=== PATIENT | female | born 1945 | race Caucasian/White ===

== ENCOUNTER 2016-10-19 19:26 | Inpatient (IN) | payer MEDICARE, OTHER ==
[~2016-10-19] VITALS: Ht 165.1 cm; Wt 89.0 kg
[~2016-10-19 19:26] MED LIST: FOLI-17 PO; LEVE500T53 PO; MULT-750 PO; PANT20TA2 PO; PARO20TA4 PO; THIA100T6 PO
[2016-10-19] MEDS ORDERED: ASPIRIN 81 MG TABLET CHEW ONE (19:55)
[2016-10-19] MEDS ORDERED: SODIUM CHLORIDE FLUSH 10ML SYR IVF ONE ×2 (20:00→20:30)
[2016-10-19] MEDS ORDERED: ASPIRIN 81 MG TABLET CHEW PO ONE (20:00)
[2016-10-19 20:39] LABS: ASPARTATE AMINO TRANSFERASE 127 U/L (15-37); BLOOD UREA NITROGEN 5 mg/dL (7-18)
[2016-10-19 20:42] LABS: IS PT STATUS REG ER OR PRE ER? YES
[2016-10-19] MEDS ORDERED: OMNIPAQUE 350 MG/ML, 100ML BOTTLE ONE (21:06)
[2016-10-19] MEDS ORDERED: SODIUM CHLORIDE 0.9%, 500ML IVBOLUS ONE (21:30)
[2016-10-19] MEDS ORDERED: MECL-76 PO (22:59)
[2016-10-19] MEDS ORDERED: ENALAPRILAT 1.25 MG/ML, 2ML IVPush PRN (23:30)
[2016-10-19] MEDS ORDERED: TEMAZEPAM 15 MG CAPSULE PO PRN (23:30)
[2016-10-19] MEDS ORDERED: LABETALOL 5MG/ML, 20ML IVPush PRN (23:30)
[2016-10-19] MEDS ORDERED: LORazepam 1MG TABLET PO PRN (23:30)
[2016-10-19] MEDS ORDERED: ONDANSETRON 2MG/ML, 2ML IVPush PRN (23:30)
[2016-10-20 00:01] VITALS: BP 128/74
[2016-10-20 02:14] LABS: IS PT STATUS REG ER OR PRE ER? NO
[2016-10-20] MEDS: POTASSIUM CHLORIDE 20 MEQ, MAGNESIUM SULFATE 2 GM, THIAMINE 100 MG, MVI ADULT 10 ML, FO... IV SCH (02:21)
[2016-10-20 06:44] VITALS: BP 128/79
[2016-10-20] MEDS ORDERED: REGADENOSON 0.4 MG/5 ML SYRINGE ONE (08:05)
[2016-10-20 08:23] LABS: IS PT STATUS REG ER OR PRE ER? NO
[2016-10-20 08:27] LABS: ASPARTATE AMINO TRANSFERASE 110 U/L (15-37); BLOOD UREA NITROGEN 4 mg/dL (7-18)
[2016-10-20] MEDS: metroNIDAZOLE 500 MG TABLET PO SCH ×3 (10:07→20:36)
[2016-10-20] MEDS: FAMOTIDINE 20 MG TABLET PO SCH ×2 (10:07→20:35)
[2016-10-20] MEDS: LORazepam 2 MG/ML, 1ML IVPush PRN ×2 (11:03→20:36)
[2016-10-20] MEDS ORDERED: POTASSIUM CHLORIDE 20 MEQ TAB.ER.PRT PO ONE (11:30)
[2016-10-20 14:09] LABS: HEPATITIS C VIRUS ANTIBODY Nonreactive (Nonreactive)
[2016-10-20 14:47] VITALS: BP 114/70
[2016-10-20 18:46] VITALS: BP 118/57
[2016-10-21] MEDS: POTASSIUM CHLORIDE 20 MEQ, MAGNESIUM SULFATE 2 GM, THIAMINE 100 MG, MVI ADULT 10 ML, FO... IV SCH (01:31)
[2016-10-21 01:33] VITALS: BP 108/67
[2016-10-21 06:20] LABS: ASPARTATE AMINO TRANSFERASE 115 U/L (15-37); BLOOD UREA NITROGEN 6 mg/dL (7-18)
[2016-10-21 07:26] VITALS: BP 108/71
[2016-10-21] MEDS ORDERED: REGADENOSON 0.4 MG/5 ML SYRINGE ONE (11:18)
[2016-10-21] MEDS: FAMOTIDINE 20 MG TABLET PO SCH (12:59)
[2016-10-21] MEDS: metroNIDAZOLE 500 MG TABLET PO SCH ×2 (12:59→17:30)
[2016-10-21 13:03] VITALS: BP 143/81
[2016-10-21] MEDS ORDERED: METR500T PO (15:00)
== END 2016-10-21 18:27 | disposition home or self-care (01) | DRG 368 ==
LOC: ED 20:17 → EDIP 22:41 → 5SO 10-20 00:06 → 4EST 10-20 11:41
PROVIDERS: ADMIT Internal Medicine; ATTEND Internal Medicine
DX: I85.00 Esophageal varices without bleeding (principal); N17.0 Acute kidney failure with tubular necrosis; A04.7 Enterocolitis due to Clostridium difficile; J98.11 Atelectasis; K76.6 Portal hypertension; F10.230 Alcohol dependence with withdrawal, uncomplicated; E87.6 Hypokalemia; J32.9 Chronic sinusitis, unspecified; K70.9 Alcoholic liver disease, unspecified; K76.0 Fatty (change of) liver, not elsewhere classified; R16.1 Splenomegaly, not elsewhere classified; Y90.9 Presence of alcohol in blood, level not specified; K80.20 Calculus of gallbladder without cholecystitis without obstruction; Z79.82 Long term (current) use of aspirin; K70.40 Alcoholic hepatic failure without coma
CPT/HCPCS: 36415; 70450; 71010; 71275; 74177; 78452; 80048; 80053; 80074; 80076; 80307; 82040; 83735; 84100; 84484; 85025; 85379; 85610; 85730; 87324; 87493; 93005; 93017; 96360; J2785; J3411; J3475; J3480; J7042; Q9967; A9502; C9898; J2060; J7040

== ENCOUNTER 2016-11-26 13:13 | Inpatient (IN) | payer MEDICARE ==
[~2016-11-26] VITALS: Ht 165.1 cm; Wt 90.7 kg
[~2016-11-26 13:13] MED LIST changes: +MECL-76 PO; +METR500T PO
[2016-11-26] MEDS ORDERED: MECLIZINE CHEWABLE 25 MG TAB PO ONE (13:30)
[2016-11-26] MEDS ORDERED: SODIUM CHLORIDE FLUSH 10ML SYR IVF ONE ×2 (13:30→17:30)
[2016-11-26] MEDS ORDERED: SODIUM CHLORIDE 0.9% 1,000ML IVBOLUS ONE (13:30)
[2016-11-26 13:55] LABS: HEMATOCRIT 28.4 % (34.6-47.8); HEMOGLOBIN 9.5 g/dL (11.7-16.4); WHITE BLOOD COUNT 4.5 x10^3/uL (3.4-10)
[2016-11-26] MEDS ORDERED: MECLIZINE CHEWABLE 25 MG TAB ONE (13:59)
[2016-11-26 14:07] LABS: ASPARTATE AMINO TRANSFERASE 141 U/L (15-37); BLOOD UREA NITROGEN 6 mg/dL (7-18)
[2016-11-26] MEDS ORDERED: LORazepam 2 MG/ML, 1ML IV PRN ×4 (16:30)
[2016-11-26] MEDS ORDERED: ONDANSETRON ODT 4 MG PO PRN (16:30)
[2016-11-26] MEDS ORDERED: MECLIZINE CHEWABLE 25 MG TAB PO PRN (16:30)
[2016-11-26] MEDS ORDERED: ONDANSETRON 2MG/ML, 2ML IVPush PRN (16:30)
[2016-11-26] MEDS ORDERED: LORazepam 0.5MG TABLET PO PRN (16:30)
[2016-11-26] MEDS ORDERED: OXYcodone IR 5MG TABLET PO PRN (16:30)
[2016-11-26] MEDS ORDERED: LORazepam 1MG TABLET PO PRN ×2 (16:30)
[2016-11-26] MEDS ORDERED: OXYcodone IR 5MG TABLET ONE (16:35)
[2016-11-26] MEDS ORDERED: LORazepam 2 MG/ML, 1ML ONE (16:36)
[2016-11-26 18:03] VITALS: BP 90/54
[2016-11-26 18:14] VITALS: BP 90/54
[2016-11-26] MEDS: POTASSIUM CHLORIDE 20 MEQ, MAGNESIUM SULFATE 1 GM, THIAMINE 100 MG, FOLIC ACID 1 MG, MV... IV SCH (20:38)
[2016-11-26] MEDS: PANTOPRAZOLE 40 MG IV IVPush SCH (20:38)
[2016-11-26] MEDS: LORazepam 1MG TABLET PO PRN ×2 (20:39→23:20)
[2016-11-26 20:57] VITALS: BP 128/51
[2016-11-26 22:30] LABS: HEMATOCRIT 25.8 % (34.6-47.8); HEMOGLOBIN 8.6 g/dL (11.7-16.4)
[2016-11-27] MEDS ORDERED: CHLORDIAZEPOXIDE 10 MG CAPSULE PO ONE (02:30)
[2016-11-27 02:45] VITALS: BP 100/50
[2016-11-27 06:12] LABS: HEMATOCRIT 25.5 % (34.6-47.8); HEMOGLOBIN 8.7 g/dL (11.7-16.4); WHITE BLOOD COUNT 3.5 x10^3/uL (3.4-10)
[2016-11-27 06:14] LABS: BLOOD UREA NITROGEN 7 mg/dL (7-18)
[2016-11-27 06:25] LABS: ASPARTATE AMINO TRANSFERASE 120 U/L (15-37)
[2016-11-27 07:04] VITALS: BP 95/57
[2016-11-27] MEDS ORDERED: CHLORDIAZEPOXIDE 10 MG CAPSULE PO SCH (09:00)
[2016-11-27] MEDS: PANTOPRAZOLE 40 MG IV IVPush SCH ×2 (10:32→21:35)
[2016-11-27] MEDS: PHYTONADIONE 10 MG/ML, 1ML SQ SCH (10:33)
[2016-11-27 12:53] VITALS: BP 99/62
[2016-11-27] MEDS ORDERED: SODIUM CHLORIDE 0.9% 1,000 ML IV SCH (15:00)
[2016-11-27 20:03] VITALS: BP 102/50
[2016-11-27] MEDS: POTASSIUM CHLORIDE 20 MEQ, MAGNESIUM SULFATE 1 GM, THIAMINE 100 MG, FOLIC ACID 1 MG, MV... IV SCH (21:55)
[2016-11-28 02:34] VITALS: BP 109/61
[2016-11-28 05:38] LABS: HEMATOCRIT 25.8 % (34.6-47.8); HEMOGLOBIN 8.6 g/dL (11.7-16.4); WHITE BLOOD COUNT 3.4 x10^3/uL (3.4-10)
[2016-11-28 05:43] LABS: ASPARTATE AMINO TRANSFERASE 115 U/L (15-37); BLOOD UREA NITROGEN 5 mg/dL (7-18)
[2016-11-28 07:20] VITALS: BP 81/43
[2016-11-28] MEDS: PANTOPRAZOLE 40 MG IV IVPush SCH ×2 (08:58→22:01)
[2016-11-28] MEDS: PHYTONADIONE 10 MG/ML, 1ML SQ SCH (08:59)
[2016-11-28] MEDS ORDERED: CHLORDIAZEPOXIDE 10 MG CAPSULE PO SCH (09:00)
[2016-11-28] MEDS ORDERED: GADOBUTROL 7.5 MMOL/7.5 ML PFS ONE (11:03)
[2016-11-28 13:01] VITALS: BP 92/56
[2016-11-28] MEDS: SODIUM CHLORIDE 0.9% 1,000 ML IV SCH (18:51)
[2016-11-28 19:56] VITALS: BP 99/56
[2016-11-28] MEDS: POTASSIUM CHLORIDE 20 MEQ, MAGNESIUM SULFATE 1 GM, THIAMINE 100 MG, FOLIC ACID 1 MG, MV... IV SCH (22:00)
[2016-11-28] MEDS: RIFAXIMIN 550 MG TABLET PO SCH (22:01)
[2016-11-29 01:58] VITALS: BP 99/58
[2016-11-29] MEDS: SODIUM CHLORIDE 0.9% 1,000 ML IV SCH ×3 (02:00→17:12)
[2016-11-29 05:45] LABS: HEMATOCRIT 28.3 % (34.6-47.8); HEMOGLOBIN 9.4 g/dL (11.7-16.4); WHITE BLOOD COUNT 3.9 x10^3/uL (3.4-10)
[2016-11-29 06:06] LABS: ASPARTATE AMINO TRANSFERASE 97 U/L (15-37); BLOOD UREA NITROGEN 4 mg/dL (7-18)
[2016-11-29 07:19] VITALS: BP 98/62
[2016-11-29] MEDS ORDERED: CHLORDIAZEPOXIDE 10 MG CAPSULE PO SCH (09:00)
[2016-11-29] MEDS: RIFAXIMIN 550 MG TABLET PO SCH ×2 (10:34→21:00)
[2016-11-29] MEDS: THIAMINE 100MG TABLET PO SCH (10:34)
[2016-11-29] MEDS: PHYTONADIONE 10 MG/ML, 1ML SQ SCH (10:34)
[2016-11-29] MEDS: MULTIVITAMIN 1 TABLET PO SCH (10:34)
[2016-11-29] MEDS: FOLIC ACID 1 MG TABLET PO SCH (10:34)
[2016-11-29] MEDS: AMOXICILLIN/CLAV 875-125MG TABLET PO SCH ×2 (12:53→21:00)
[2016-11-29] MEDS: CIPROFLOXACIN/HYDROCORTISONE EAR SUSP 0.2-1%, 10ML RIGHT EAR SCH ×2 (12:53→21:00)
[2016-11-29 14:39] VITALS: BP 103/68
[2016-11-29 18:57] VITALS: BP 109/63
[2016-11-30 01:26] VITALS: BP 104/55
[2016-11-30] MEDS: SODIUM CHLORIDE 0.9% 1,000 ML IV SCH (02:00)
[2016-11-30 06:07] LABS: ASPARTATE AMINO TRANSFERASE 83 U/L (15-37); BLOOD UREA NITROGEN 4 mg/dL (7-18)
[2016-11-30] MEDS: PANTOPRAZOLE 20MG TABLET PO SCH (07:30)
[2016-11-30 07:58] VITALS: BP 110/69
[2016-11-30] MEDS ORDERED: POTASSIUM CHLORIDE 20 MEQ TAB.ER.PRT PO ONE (08:00)
[2016-11-30] MEDS: CIPROFLOXACIN/HYDROCORTISONE EAR SUSP 0.2-1%, 10ML RIGHT EAR SCH ×2 (09:00→20:49)
[2016-11-30] MEDS: FOLIC ACID 1 MG TABLET PO SCH (09:00)
[2016-11-30] MEDS: AMOXICILLIN/CLAV 875-125MG TABLET PO SCH ×2 (09:00→20:48)
[2016-11-30] MEDS: THIAMINE 100MG TABLET PO SCH (09:00)
[2016-11-30] MEDS: RIFAXIMIN 550 MG TABLET PO SCH ×2 (09:00→20:48)
[2016-11-30] MEDS: PHYTONADIONE 10 MG/ML, 1ML SQ SCH (09:00)
[2016-11-30] MEDS: MULTIVITAMIN 1 TABLET PO SCH (09:00)
[2016-11-30 13:01] VITALS: BP 116/69
[2016-11-30] MEDS ORDERED: SODIUM CHLORIDE 0.9% 1,000 ML IV SCH (15:00)
[2016-11-30 19:02] VITALS: BP 99/66
[2016-12-01 01:59] VITALS: BP 96/59
[2016-12-01 06:17] LABS: BLOOD UREA NITROGEN 4 mg/dL (7-18)
[2016-12-01 06:21] LABS: ASPARTATE AMINO TRANSFERASE 77 U/L (15-37)
[2016-12-01 07:39] VITALS: BP 91/55
[2016-12-01] MEDS: FOLIC ACID 1 MG TABLET PO SCH (09:46)
[2016-12-01] MEDS: RIFAXIMIN 550 MG TABLET PO SCH ×2 (09:46→20:29)
[2016-12-01] MEDS: CIPROFLOXACIN/HYDROCORTISONE EAR SUSP 0.2-1%, 10ML RIGHT EAR SCH ×2 (09:46→20:29)
[2016-12-01] MEDS: PHYTONADIONE 10 MG/ML, 1ML SQ SCH (09:46)
[2016-12-01] MEDS: PANTOPRAZOLE 20MG TABLET PO SCH (09:46)
[2016-12-01] MEDS: THIAMINE 100MG TABLET PO SCH (09:46)
[2016-12-01] MEDS: AMOXICILLIN/CLAV 875-125MG TABLET PO SCH ×2 (09:46→20:29)
[2016-12-01] MEDS: MULTIVITAMIN 1 TABLET PO SCH (09:46)
[2016-12-01] MEDS ORDERED: POTASSIUM CHLORIDE 20 MEQ TAB.ER.PRT PO ONE (10:00)
[2016-12-01] MEDS ORDERED: MAGNESIUM SULFATE PMX 2GM/50ML 50 ML IV ONE (10:00)
[2016-12-01] MEDS: LACTOBACILLUS CHEW TABLET PO SCH ×3 (11:11→20:29)
[2016-12-01 13:49] VITALS: BP 103/67
[2016-12-01 20:30] VITALS: BP 104/66
[2016-12-02 03:00] VITALS: BP 107/65
[2016-12-02 04:03] LABS: ASPARTATE AMINO TRANSFERASE 74 U/L (15-37); BLOOD UREA NITROGEN 5 mg/dL (7-18)
[2016-12-02] MEDS: LACTOBACILLUS CHEW TABLET PO SCH ×4 (05:01→21:26)
[2016-12-02] MEDS: PANTOPRAZOLE 20MG TABLET PO SCH (07:51)
[2016-12-02 07:52] VITALS: BP 99/63
[2016-12-02] MEDS: CIPROFLOXACIN/HYDROCORTISONE EAR SUSP 0.2-1%, 10ML RIGHT EAR SCH ×3 (09:00→21:26)
[2016-12-02] MEDS: RIFAXIMIN 550 MG TABLET PO SCH ×2 (11:00→21:26)
[2016-12-02] MEDS: MULTIVITAMIN 1 TABLET PO SCH (11:01)
[2016-12-02] MEDS: FOLIC ACID 1 MG TABLET PO SCH (11:01)
[2016-12-02] MEDS: PHYTONADIONE 10 MG/ML, 1ML SQ SCH (11:01)
[2016-12-02] MEDS: THIAMINE 100MG TABLET PO SCH (11:01)
[2016-12-02] MEDS: AMOXICILLIN/CLAV 875-125MG TABLET PO SCH ×2 (11:01→21:26)
[2016-12-02 12:41] VITALS: BP 98/64
[2016-12-02 20:00] VITALS: BP 83/34
[2016-12-03 02:00] VITALS: BP 97/59
[2016-12-03] MEDS: LACTOBACILLUS CHEW TABLET PO SCH ×4 (05:15→20:15)
[2016-12-03 07:09] VITALS: BP 88/46
[2016-12-03 07:11] LABS: ASPARTATE AMINO TRANSFERASE 82 U/L (15-37); BLOOD UREA NITROGEN 7 mg/dL (7-18)
[2016-12-03] MEDS: CIPROFLOXACIN/HYDROCORTISONE EAR SUSP 0.2-1%, 10ML RIGHT EAR SCH ×2 (08:34→20:15)
[2016-12-03] MEDS: RIFAXIMIN 550 MG TABLET PO SCH ×2 (08:35→20:15)
[2016-12-03] MEDS: MULTIVITAMIN 1 TABLET PO SCH (08:36)
[2016-12-03] MEDS: FOLIC ACID 1 MG TABLET PO SCH (08:36)
[2016-12-03] MEDS: PHYTONADIONE 10 MG/ML, 1ML SQ SCH (08:36)
[2016-12-03] MEDS: AMOXICILLIN/CLAV 875-125MG TABLET PO SCH ×2 (08:36→20:15)
[2016-12-03] MEDS: THIAMINE 100MG TABLET PO SCH (08:36)
[2016-12-03] MEDS: PANTOPRAZOLE 20MG TABLET PO SCH (08:36)
[2016-12-03] MEDS ORDERED: LORazepam 1MG TABLET PO PRN (09:30)
[2016-12-03 12:22] VITALS: BP 90/54
[2016-12-03] MEDS: LACTULOSE 20 GM/30 ML UDC PO SCH ×2 (18:02→20:15)
[2016-12-03 20:00] VITALS: BP 98/62
[2016-12-04 02:00] VITALS: BP 98/59
[2016-12-04] MEDS: LACTOBACILLUS CHEW TABLET PO SCH ×4 (05:16→21:04)
[2016-12-04 05:44] LABS: BLOOD UREA NITROGEN 9 mg/dL (7-18)
[2016-12-04 05:49] LABS: ASPARTATE AMINO TRANSFERASE 91 U/L (15-37)
[2016-12-04 06:09] LABS: HEMATOCRIT 32.1 % (34.6-47.8); HEMOGLOBIN 10.5 g/dL (11.7-16.4); WHITE BLOOD COUNT 4.8 x10^3/uL (3.4-10)
[2016-12-04 06:48] VITALS: BP 98/68
[2016-12-04] MEDS: FOLIC ACID 1 MG TABLET PO SCH (08:39)
[2016-12-04] MEDS: CIPROFLOXACIN/HYDROCORTISONE EAR SUSP 0.2-1%, 10ML RIGHT EAR SCH ×2 (08:40→21:04)
[2016-12-04] MEDS: AMOXICILLIN/CLAV 875-125MG TABLET PO SCH ×2 (08:40→21:04)
[2016-12-04] MEDS: PANTOPRAZOLE 20MG TABLET PO SCH (08:40)
[2016-12-04] MEDS: THIAMINE 100MG TABLET PO SCH (08:40)
[2016-12-04] MEDS: LACTULOSE 20 GM/30 ML UDC PO SCH ×3 (08:40→21:04)
[2016-12-04] MEDS: MULTIVITAMIN 1 TABLET PO SCH (08:40)
[2016-12-04] MEDS: PHYTONADIONE 10 MG/ML, 1ML SQ SCH (08:42)
[2016-12-04] MEDS: RIFAXIMIN 550 MG TABLET PO SCH ×2 (08:43→21:04)
[2016-12-04 12:12] VITALS: BP 95/58
[2016-12-04 20:00] VITALS: BP 103/63
[2016-12-05] MEDS: LACTOBACILLUS CHEW TABLET PO SCH (06:00)
[2016-12-05] MEDS: PANTOPRAZOLE 20MG TABLET PO SCH (09:40)
[2016-12-05] MEDS: RIFAXIMIN 550 MG TABLET PO SCH (09:40)
[2016-12-05] MEDS: FOLIC ACID 1 MG TABLET PO SCH (09:40)
[2016-12-05] MEDS: AMOXICILLIN/CLAV 875-125MG TABLET PO SCH (09:40)
[2016-12-05] MEDS: LACTULOSE 20 GM/30 ML UDC PO SCH (09:40)
[2016-12-05] MEDS: THIAMINE 100MG TABLET PO SCH (09:40)
[2016-12-05] MEDS: MULTIVITAMIN 1 TABLET PO SCH (09:40)
[2016-12-05] MEDS: PHYTONADIONE 10 MG/ML, 1ML SQ SCH (09:40)
[2016-12-05] MEDS: CIPROFLOXACIN/HYDROCORTISONE EAR SUSP 0.2-1%, 10ML RIGHT EAR SCH (09:41)
[2016-12-05 13:00] VITALS: BP 93/50
== END 2016-12-05 13:10 | disposition hospice, home (50) | DRG 441 ==
LOC: ED 13:22 → EDIP 16:06 → 4EST 17:54
PROVIDERS: ADMIT Family Medicine; ATTEND Family Medicine
DX: K72.90 Hepatic failure, unspecified without coma (principal); G93.40 Encephalopathy, unspecified; E43 Unspecified severe protein-calorie malnutrition; D68.9 Coagulation defect, unspecified; D69.59 Other secondary thrombocytopenia; K70.10 Alcoholic hepatitis without ascites; E87.1 Hypo-osmolality and hyponatremia; K92.1 Melena; F10.239 Alcohol dependence with withdrawal, unspecified; D53.9 Nutritional anemia, unspecified; K70.30 Alcoholic cirrhosis of liver without ascites; R16.1 Splenomegaly, not elsewhere classified; W01.0XXA Fall on same level from slipping, tripping and stumbling without subsequent striking against object, initial encounter; H70.91 Unspecified mastoiditis, right ear; E74.39 Other disorders of intestinal carbohydrate absorption; F32.9 Major depressive disorder, single episode, unspecified; F41.9 Anxiety disorder, unspecified; R29.6 Repeated falls; H02.401 Unspecified ptosis of right eyelid; J32.0 Chronic maxillary sinusitis; K80.20 Calculus of gallbladder without cholecystitis without obstruction; R19.7 Diarrhea, unspecified; K76.0 Fatty (change of) liver, not elsewhere classified; R73.9 Hyperglycemia, unspecified; Z51.5 Encounter for palliative care; S40.022A Contusion of left upper arm, initial encounter; Z68.33 Body mass index [BMI] 33.0-33.9, adult; Y93.89 Activity, other specified; Y92.099 Unspecified place in other non-institutional residence as the place of occurrence of the external cause; Y99.8 Other external cause status; Z82.3 Family history of stroke; Z83.3 Family history of diabetes mellitus; Z91.81 History of falling; Z90.49 Acquired absence of other specified parts of digestive tract
CPT/HCPCS: 36415; 70450; 70553; 76700; 80053; 81001; 82140; 82962; 83036; 83690; 83735; 84100; 84443; 85014; 85018; 85025; 85610; 85730; 87086; 87324; 93005; 96361; 96374; A9585; J2405; J3411; J3430; J3475; J3480; C9113; J2060; J7030